=== PATIENT | male | born 1935 | race African-American/Black ===

== ENCOUNTER → 2020-03-10 | Emergency (ER) | payer OTHER ==
[~2020-03-10] VITALS: Ht 172.7 cm; Wt 96.2 kg
[2020-03-10 18:32] LABS: Basophils # (auto) 0 10 ^3/uL (0-0.2); Basophils % (auto) 1.2 % (0.0-2.0); Eosinophils # (auto) 0.3 10 ^3/uL (0-0.8); Eosinophils % (auto) 10.2 % (0.0-7.0); Lymphocytes # (auto) 0.9 10 ^3/uL (0.4-5.4); Lymphocytes % (auto) 25.8 % (10.0-50.0); Mean Corpuscular Hemoglobin 28.9 pg (28.0-32.0); Mean Corpuscular Hgb Conc. 32.4 g/dL (32.0-36.0); Mean Corpuscular Volume 89.2 fL (80.0-100.0); Monocytes # (auto) 0.5 10 ^3/uL (0-1.3); Monocytes % (auto) 15.4 % (0.0-12.0); Neutrophils # (auto) 1.6 10 ^3/uL (1.6-8.6); Neutrophils % (auto) 47.4 % (37.0-80.0); Nucleated Red Blood Cells % 0.1 %; Platelet Count (auto) 140 10^3/uL (140-450); Red Blood Cells 3.82 10^6/uL (4.5-5.90); Red Cell Distribution Width 14.2 % (11.8-14.3); White Blood Cell 3.4 10^3/uL (4.4-10.8)
[2020-03-10 18:51] LABS: Albumin 3.1 g/dL (3.4-5.0); Calcium 8.6 mg/dL (8.5-10.1)
[2020-03-10 18:53] LABS: BUN/Creatinine Ratio 11.2
[2020-03-10 18:55] LABS: Bilirubin, Total 0.3 mg/dL (0.2-1.0); Total Protein 6.7 g/dL (6.4-8.2)
[2020-03-10 22:11] VITALS: BP 126/89
== END | disposition home or self-care (01) ==
LOC: ER 17:44
DX: N28.9 Disorder of kidney and ureter, unspecified (principal)
CPT/HCPCS: 36415; 80053; 85025

== ENCOUNTER 2020-11-06 12:23 | Inpatient (IN) | payer OTHER ==
[~2020-11-06] VITALS: Ht 185.4 cm; Wt 92.9 kg
[2020-11-06 14:21] LABS: Basophils # (auto) 0 10 ^3/uL (0-0.2); Basophils % (auto) 0.1 % (0.0-2.0); Eosinophils # (auto) 0 10 ^3/uL (0-0.8); Eosinophils % (auto) 0.3 % (0.0-7.0); Hematocrit 33.6 % (41.0-53.0); Hemoglobin 11.3 g/dL (13.5-17.5); Lymphocytes # (auto) 0.3 10 ^3/uL (0.4-5.4); Lymphocytes % (auto) 4.1 % (10.0-50.0); Mean Corpuscular Hgb Conc. 33.6 g/dL (32.0-36.0); Mean Corpuscular Volume 89.1 fL (80.0-100.0); Monocytes # (auto) 0.6 10 ^3/uL (0-1.3); Monocytes % (auto) 7.5 % (0.0-12.0); Neutrophils # (auto) 7.5 10 ^3/uL (1.6-8.6); Nucleated Red Blood Cells % 0.1 %; Platelet Count (auto) 96 10^3/uL (140-450); Red Blood Cells 3.77 10^6/uL (4.5-5.90); Red Cell Distribution Width 14.2 % (11.8-14.3); White Blood Cell 8.5 10^3/uL (4.4-10.8)
[2020-11-06 14:38] LABS: INR 1.05 (0.9-1.15); Partial Thromboplastin Time 24.2 sec (23.0-31.2)
[2020-11-06 14:43] LABS: Albumin 3.3 g/dL (3.4-5.0); Calcium 8.6 mg/dL (8.5-10.1); Magnesium 2.5 mg/dL (1.6-2.6); Potassium 3.8 mmol/L (3.5-5.1)
[2020-11-06 14:48] LABS: BUN/Creatinine Ratio 11.4; Bilirubin, Total 0.7 mg/dL (0.2-1.0); Total Protein 6.7 g/dL (6.4-8.2)
[2020-11-06] MEDS ORDERED: MORPHINE SULF INJ 2 MG/ML SYRINGE 1ML IV ONE (15:45)
[2020-11-06] MEDS ORDERED: ONDANSETRON HCL 4 MG/2 ML VIAL IV ONE (15:45)
[2020-11-06] MEDS ORDERED: DOCUSATE SOD 100 MG CAP PO PRN (18:00)
[2020-11-06] MEDS ORDERED: MORPHINE SULF INJ 2 MG/ML SYRINGE 1ML IV PRN (18:00)
[2020-11-06] MEDS ORDERED: ACETAMINOPHEN 500 MG TAB PO PRN (18:00)
[2020-11-06] MEDS ORDERED: ONDANSETRON HCL 4 MG/2 ML VIAL IV PRN (18:00)
[2020-11-06] MEDS ORDERED: NITROGLYCERIN 0.4 MG SL TAB SL PRN (18:00)
[2020-11-06] MEDS: MORPHINE SULF INJ 2 MG/ML SYRINGE 1ML IV PRN (20:04)
[2020-11-07] MEDS: HYDROcodone-ACET 5/325MG TAB PO PRN (03:30)
[2020-11-07 05:30] VITALS: BP 126/69
[2020-11-07] MEDS: MORPHINE SULF INJ 2 MG/ML SYRINGE 1ML IV PRN (09:01)
[2020-11-07] MEDS: FAMOTIDINE 20 MG TAB PO SCH (09:50)
[2020-11-07] MEDS: amLODIPine BESYLATE 5 MG TAB PO SCH (09:50)
[2020-11-07] MEDS ORDERED: FAMOTIDINE 20 MG TAB PO SCH (10:00)
[2020-11-07] MEDS ORDERED: KETOROLAC TROMETH 30 MG/ML 1ML VIAL ONE (14:15)
[2020-11-07] MEDS ORDERED: VANCOMYCIN HCL 1000 MG VL ONE (14:16)
[2020-11-07] MEDS ORDERED: BUPIVACAINE 0.25% INJ 50ML VIAL ONE (14:17)
[2020-11-07] MEDS ORDERED: TRANEXAMIC ACID 0 ML ONE (14:17)
[2020-11-07] MEDS ORDERED: TETRACAINE 1% INJ 2 ML VIAL IJ ONE (14:28)
[2020-11-07] MEDS ORDERED: ceFAZolin 1GM/50ML 100 ML IV ONE (14:33)
[2020-11-07] MEDS ORDERED: MORPHINE SULF(PF) 0.5MG/ML 10ML VIAL ONE (14:42)
[2020-11-07 16:00] VITALS: BP 124/67
[2020-11-07] MEDS ORDERED: HALOPERIDOL LACTATE 5 MG/ML INJ VIAL IM PRN (17:00)
[2020-11-07 18:36] LABS: Basophils # (auto) 0 10 ^3/uL (0-0.2); Basophils % (auto) 0.4 % (0.0-2.0); Eosinophils # (auto) 0.1 10 ^3/uL (0-0.8); Eosinophils % (auto) 2.4 % (0.0-7.0); Hematocrit 33.1 % (41.0-53.0); Hemoglobin 10.9 g/dL (13.5-17.5); Lymphocytes # (auto) 0.4 10 ^3/uL (0.4-5.4); Lymphocytes % (auto) 8.3 % (10.0-50.0); Mean Corpuscular Hemoglobin 29.2 pg (28.0-32.0); Mean Corpuscular Hgb Conc. 32.8 g/dL (32.0-36.0); Monocytes # (auto) 0.8 10 ^3/uL (0-1.3); Monocytes % (auto) 17.1 % (0.0-12.0); Neutrophils # (auto) 3.5 10 ^3/uL (1.6-8.6); Neutrophils % (auto) 71.8 % (37.0-80.0); Platelet Count (auto) 92 10^3/uL (140-450); Red Blood Cells 3.71 10^6/uL (4.5-5.90); White Blood Cell 4.9 10^3/uL (4.4-10.8)
[2020-11-07 21:41] VITALS: BP 136/66
[2020-11-08] VITALS (7 sets, daily range): BP systolic 118–131; BP diastolic 54–73
[2020-11-08 00:38] LABS: Urine Bacteria MOD /hpf (None Seen); Urine Blood 3+ /uL (Negative); Urine Hyaline Cast FEW /lpf (0 - 2); Urine Specific Gravity 1.016 (1.001-1.035); Urine WBC 32 /hpf (0 - 3)
[2020-11-08] MEDS: MORPHINE SULF INJ 2 MG/ML SYRINGE 1ML IV PRN ×2 (00:40→06:20)
[2020-11-08 06:02] LABS: Basophils # (auto) 0 10 ^3/uL (0-0.2); Basophils % (auto) 0.4 % (0.0-2.0); Eosinophils # (auto) 0.2 10 ^3/uL (0-0.8); Eosinophils % (auto) 3.4 % (0.0-7.0); Hematocrit 33.2 % (41.0-53.0); Hemoglobin 11.1 g/dL (13.5-17.5); Lymphocytes # (auto) 0.6 10 ^3/uL (0.4-5.4); Lymphocytes % (auto) 10.8 % (10.0-50.0); Mean Corpuscular Hemoglobin 29.7 pg (28.0-32.0); Mean Corpuscular Hgb Conc. 33.3 g/dL (32.0-36.0); Monocytes # (auto) 0.8 10 ^3/uL (0-1.3); Monocytes % (auto) 15.2 % (0.0-12.0); Neutrophils # (auto) 3.7 10 ^3/uL (1.6-8.6); Neutrophils % (auto) 70.2 % (37.0-80.0); Nucleated Red Blood Cells % 0.2 %; Platelet Count (auto) 101 10^3/uL (140-450); Red Blood Cells 3.73 10^6/uL (4.5-5.90); Red Cell Distribution Width 14.3 % (11.8-14.3); White Blood Cell 5.3 10^3/uL (4.4-10.8)
[2020-11-08 06:25] LABS: Potassium 4.4 mmol/L (3.5-5.1)
[2020-11-08 06:35] LABS: Albumin 2.9 g/dL (3.4-5.0); BUN/Creatinine Ratio 15.1; Bilirubin, Total 0.8 mg/dL (0.2-1.0); Calcium 8.7 mg/dL (8.5-10.1); Total Protein 6.2 g/dL (6.4-8.2)
[2020-11-08] MEDS ORDERED: TRANEXAMIC ACID 20 ML ONE (08:23)
[2020-11-08] MEDS ORDERED: BUPIVACAINE HCL 50 ML ONE (08:23)
[2020-11-08] MEDS ORDERED: VANCOMYCIN HCL 1000 MG VL ONE (08:24)
[2020-11-08] MEDS ORDERED: KETOROLAC TROMETH 30 MG/ML 1ML VIAL ONE (09:16)
[2020-11-08] MEDS ORDERED: MORPHINE SULF(PF) 0.5MG/ML 10ML VIAL ONE (09:16)
[2020-11-08] MEDS: FAMOTIDINE 20 MG TAB PO SCH (10:00)
[2020-11-08] MEDS: amLODIPine BESYLATE 5 MG TAB PO SCH (10:00)
[2020-11-08] MEDS ORDERED: ceFAZolin 1GM/50ML 100 ML IV ONE (10:04)
[2020-11-08] MEDS ORDERED: TETRACAINE 1% INJ 2 ML VIAL IJ ONE (10:27)
[2020-11-08] MEDS ORDERED: MIDAZOLAM HCL 1MG/1ML-2 ML VIAL ONE ×2 (10:30→11:01)
[2020-11-08] MEDS ORDERED: fentaNYL CITRATE 100 MCG/2 ML VL ONE (10:30)
[2020-11-08] MEDS ORDERED: DexAMETHasone SOD PHOS 10MG/1ML VIAL INJ ONE (10:42)
[2020-11-08] MEDS ORDERED: cefTRIAXone 1GM/50ML D5W 50 ML IV ONE (11:00)
[2020-11-08] MEDS ORDERED: PROPOFOL 10 MG/ML 20 ML IV ONE ×2 (11:01→12:03)
[2020-11-08] MEDS ORDERED: ONDANSETRON HCL 4 MG/2 ML VIAL IV PRN (12:45)
[2020-11-08] MEDS ORDERED: ePHEDrine SULFATE 50 MG/ML AMP IV PRN (12:45)
[2020-11-08] MEDS ORDERED: MIDAZOLAM HCL 1MG/1ML-2 ML VIAL IV PRN (12:45)
[2020-11-08] MEDS ORDERED: MORPHINE SULFATE 4 MG/ML SYR/VIAL IV PRN (12:45)
[2020-11-08] MEDS ORDERED: LABETALOL HCL 5 MG/ML 4ML SYRINGE IV PRN (12:45)
[2020-11-08] MEDS: LACTATED RINGER'S 1,000 ML IV SCH ×2 (14:03→21:42)
[2020-11-08] MEDS: ceFAZolin 1GM/50ML 50 ML IV SCH ×2 (16:00→21:41)
[2020-11-09 06:00] VITALS: BP 111/68
[2020-11-09 07:07] LABS: Basophils # (auto) 0 10 ^3/uL (0-0.2); Basophils % (auto) 0.2 % (0.0-2.0); Eosinophils # (auto) 0.2 10 ^3/uL (0-0.8); Eosinophils % (auto) 3.6 % (0.0-7.0); Hematocrit 28.6 % (41.0-53.0); Hemoglobin 9.8 g/dL (13.5-17.5); Lymphocytes # (auto) 0.3 10 ^3/uL (0.4-5.4); Lymphocytes % (auto) 5.7 % (10.0-50.0); Mean Corpuscular Hemoglobin 30.2 pg (28.0-32.0); Mean Corpuscular Hgb Conc. 34.2 g/dL (32.0-36.0); Mean Corpuscular Volume 88.4 fL (80.0-100.0); Monocytes # (auto) 0.8 10 ^3/uL (0-1.3); Monocytes % (auto) 14.3 % (0.0-12.0); Neutrophils # (auto) 4.5 10 ^3/uL (1.6-8.6); Neutrophils % (auto) 76.2 % (37.0-80.0); Platelet Count (auto) 88 10^3/uL (140-450); Red Blood Cells 3.24 10^6/uL (4.5-5.90); Red Cell Distribution Width 14.1 % (11.8-14.3); White Blood Cell 5.9 10^3/uL (4.4-10.8)
[2020-11-09 07:11] LABS: Potassium 4.5 mmol/L (3.5-5.1)
[2020-11-09 07:21] LABS: Albumin 2.6 g/dL (3.4-5.0); BUN/Creatinine Ratio 17.8; Bilirubin, Total 0.8 mg/dL (0.2-1.0); Total Protein 5.7 g/dL (6.4-8.2)
[2020-11-09] MEDS: ceFAZolin 1GM/50ML 50 ML IV SCH (07:59)
[2020-11-09 08:00] VITALS: BP 121/63
[2020-11-09] MEDS: LACTATED RINGER'S 1,000 ML IV SCH (08:15)
[2020-11-09] MEDS: cefTRIAXone 1GM/50ML D5W 50 ML IV SCH (09:00)
[2020-11-09] MEDS: amLODIPine BESYLATE 5 MG TAB PO SCH (09:57)
[2020-11-09] MEDS: HYDROcodone-ACET 5/325MG TAB PO PRN ×2 (09:57→20:33)
[2020-11-09] MEDS: FAMOTIDINE 20 MG TAB PO SCH (09:57)
[2020-11-09] MEDS ORDERED: ENOXAPARIN SOD 40 MG/0.4 ML SYRINGE SC SCH (10:00)
[2020-11-09 15:52] VITALS: BP 119/56
[2020-11-09 21:52] VITALS: BP 122/59
[2020-11-10 05:04] VITALS: BP 122/62
[2020-11-10 07:08] LABS: Basophils # (auto) 0 10 ^3/uL (0-0.2); Basophils % (auto) 0.3 % (0.0-2.0); Eosinophils # (auto) 0.3 10 ^3/uL (0-0.8); Eosinophils % (auto) 4.6 % (0.0-7.0); Hematocrit 25.6 % (41.0-53.0); Hemoglobin 8.8 g/dL (13.5-17.5); Lymphocytes # (auto) 0.5 10 ^3/uL (0.4-5.4); Mean Corpuscular Hemoglobin 30.1 pg (28.0-32.0); Mean Corpuscular Hgb Conc. 34.3 g/dL (32.0-36.0); Mean Corpuscular Volume 87.5 fL (80.0-100.0); Monocytes # (auto) 1.2 10 ^3/uL (0-1.3); Monocytes % (auto) 16.3 % (0.0-12.0); Neutrophils # (auto) 5.1 10 ^3/uL (1.6-8.6); Neutrophils % (auto) 71.8 % (37.0-80.0); Nucleated Red Blood Cells % 0.1 %; Platelet Count (auto) 98 10^3/uL (140-450); Red Blood Cells 2.93 10^6/uL (4.5-5.90); White Blood Cell 7.1 10^3/uL (4.4-10.8)
[2020-11-10 07:28] LABS: BUN/Creatinine Ratio 19.1; Calcium 8.5 mg/dL (8.5-10.1); Potassium 4.4 mmol/L (3.5-5.1)
[2020-11-10 08:00] VITALS: BP 134/61
[2020-11-10 09:35] VITALS: BP 134/61
[2020-11-10] MEDS: cefTRIAXone 1GM/50ML D5W 50 ML IV SCH (10:04)
[2020-11-10] MEDS: FAMOTIDINE 20 MG TAB PO SCH (10:04)
[2020-11-10] MEDS: amLODIPine BESYLATE 5 MG TAB PO SCH (10:04)
[2020-11-10] MEDS ORDERED: FERROUS SULFATE 325 MG TAB PO ONE (10:45)
[2020-11-10 18:14] VITALS: BP 122/66
[2020-11-10] MEDS: FERROUS SULFATE 325 MG TAB PO SCH (18:38)
[2020-11-10 21:00] VITALS: BP 132/45
[2020-11-11 05:40] VITALS: BP 132/58
[2020-11-11 05:58] LABS: Basophils # (auto) 0 10 ^3/uL (0-0.2); Basophils % (auto) 0.6 % (0.0-2.0); Eosinophils # (auto) 0.4 10 ^3/uL (0-0.8); Eosinophils % (auto) 6.5 % (0.0-7.0); Hematocrit 26.1 % (41.0-53.0); Hemoglobin 8.9 g/dL (13.5-17.5); Lymphocytes # (auto) 0.8 10 ^3/uL (0.4-5.4); Lymphocytes % (auto) 13.2 % (10.0-50.0); Mean Corpuscular Hemoglobin 29.8 pg (28.0-32.0); Mean Corpuscular Hgb Conc. 34.1 g/dL (32.0-36.0); Mean Corpuscular Volume 87.4 fL (80.0-100.0); Monocytes # (auto) 0.9 10 ^3/uL (0-1.3); Monocytes % (auto) 15.5 % (0.0-12.0); Neutrophils # (auto) 3.9 10 ^3/uL (1.6-8.6); Neutrophils % (auto) 64.2 % (37.0-80.0); Platelet Count (auto) 112 10^3/uL (140-450); Red Blood Cells 2.99 10^6/uL (4.5-5.90); Red Cell Distribution Width 14.2 % (11.8-14.3)
[2020-11-11 08:00] VITALS: BP 133/61
[2020-11-11] MEDS: FERROUS SULFATE 325 MG TAB PO SCH ×2 (08:00→17:53)
[2020-11-11] MEDS: cefTRIAXone 1GM/50ML D5W 50 ML IV SCH (09:00)
[2020-11-11] MEDS: FAMOTIDINE 20 MG TAB PO SCH (09:56)
[2020-11-11] MEDS: amLODIPine BESYLATE 5 MG TAB PO SCH (09:56)
[2020-11-11] MEDS: HYDROcodone-ACET 5/325MG TAB PO PRN ×3 (09:57→17:53)
[2020-11-11 13:34] VITALS: BP 133/61
== END 2020-11-11 19:00 | disposition home or self-care (01) | DRG 522 ==
LOC: EDBD 12:23 → ER 12:23 → TELE 12:24 → TELE-CENTR 11-07 16:10
PROVIDERS: ADMIT Nurse Practitioner Acute Care; ATTEND Internal Medicine
PROC: 0SRR01Z Replacement of Right Hip Joint, Femoral Surface with Metal Synthetic Substitute, Open Approach (ICD-10-PCS; principal; 2020-11-08 10:34)
DX: S72.011A Unspecified intracapsular fracture of right femur, initial encounter for closed fracture (principal); N18.4 Chronic kidney disease, stage 4 (severe); I50.22 Chronic systolic (congestive) heart failure; N39.0 Urinary tract infection, site not specified; I42.9 Cardiomyopathy, unspecified; I13.0 Hypertensive heart and chronic kidney disease with heart failure and stage 1 through stage 4 chronic kidney disease, or unspecified chronic kidney disease; W01.0XXA Fall on same level from slipping, tripping and stumbling without subsequent striking against object, initial encounter; Y93.01 Activity, walking, marching and hiking; D69.6 Thrombocytopenia, unspecified; E03.9 Hypothyroidism, unspecified; M81.0 Age-related osteoporosis without current pathological fracture; E78.5 Hyperlipidemia, unspecified; D63.8 Anemia in other chronic diseases classified elsewhere; Z20.822 Contact with and (suspected) exposure to COVID-19; E11.22 Type 2 diabetes mellitus with diabetic chronic kidney disease; R31.9 Hematuria, unspecified; I25.10 Atherosclerotic heart disease of native coronary artery without angina pectoris; Z79.899 Other long term (current) drug therapy; Y92.096 Garden or yard of other non-institutional residence as the place of occurrence of the external cause; Y99.8 Other external cause status
CPT/HCPCS: 36415; 70450; 71045; 72170; 72192; 73501; 80048; 80053; 81001; 82962; 83735; 84443; 84484; 85025; 85610; 85730; 86850; 86900; 86901; 87426; 93005; 93306; 96374; 96375; 97110; 97116; 97530; A4565; G0378; J0690; J0696; J1100; J1885; J2250; J2405; J2704; J3490

== ENCOUNTER 2020-11-28 09:56 | Inpatient (IN) | payer OTHER ==
[~2020-11-28] VITALS: Ht 188 cm; Wt 89.2 kg
[2020-11-28 10:56] LABS: Basophils # (auto) 0 10 ^3/uL (0-0.2); Basophils % (auto) 0.3 % (0.0-2.0); Eosinophils # (auto) 0 10 ^3/uL (0-0.8); Eosinophils % (auto) 0.3 % (0.0-7.0); Hemoglobin 9.1 g/dL (13.5-17.5); Lymphocytes # (auto) 0.2 10 ^3/uL (0.4-5.4); Lymphocytes % (auto) 4.8 % (10.0-50.0); Mean Corpuscular Hemoglobin 29.3 pg (28.0-32.0); Mean Corpuscular Hgb Conc. 33.8 g/dL (32.0-36.0); Mean Corpuscular Volume 86.9 fL (80.0-100.0); Monocytes # (auto) 0.4 10 ^3/uL (0-1.3); Monocytes % (auto) 9.7 % (0.0-12.0); Neutrophils # (auto) 3.9 10 ^3/uL (1.6-8.6); Neutrophils % (auto) 84.9 % (37.0-80.0); Nucleated Red Blood Cells % 0.2 %; Platelet Count (auto) 174 10^3/uL (140-450); Red Cell Distribution Width 14.3 % (11.8-14.3); White Blood Cell 4.6 10^3/uL (4.4-10.8)
[2020-11-28 11:26] LABS: INR 1.07 (0.9-1.15); Partial Thromboplastin Time 31.1 sec (23.0-31.2)
[2020-11-28 11:30] LABS: Albumin 2.4 g/dL (3.4-5.0); Potassium 3.9 mmol/L (3.5-5.1)
[2020-11-28 11:45] LABS: BUN/Creatinine Ratio 21.9; Bilirubin, Total 1.1 mg/dL (0.2-1.0); Total Protein 6.2 g/dL (6.4-8.2)
[2020-11-28] MEDS ORDERED: cefTRIAXone 1GM/50ML D5W 50 ML IV ONE (12:30)
[2020-11-28] MEDS ORDERED: ENOXAPARIN SOD 100 MG/1 ML SYRINGE SC ONE (12:30)
[2020-11-28] MEDS ORDERED: AZITHROMYCIN 500MG/ 250ML 250 ML IV ONE (12:30)
[2020-11-28] MEDS ORDERED: FUROSEMIDE 20 MG/2 ML VIAL IV ONE (13:15)
[2020-11-28] MEDS ORDERED: NITROGLYCERIN 0.4 MG SL TAB SL PRN (15:15)
[2020-11-28] MEDS ORDERED: HYDROcodone-ACET 5/325MG TAB PO PRN (15:15)
[2020-11-28] MEDS ORDERED: REMDESIVIR PER PHARMACY 0 ML IV SCH (15:15)
[2020-11-28] MEDS ORDERED: ONDANSETRON HCL 4 MG/2 ML VIAL IV PRN (15:15)
[2020-11-28] MEDS ORDERED: hydrALAZINE HCL 20 MG/ML VL IV PRN (15:15)
[2020-11-28] MEDS ORDERED: ACETAMINOPHEN 500 MG TAB PO PRN ×2 (15:15)
[2020-11-28] MEDS ORDERED: MORPHINE SULF INJ 2 MG/ML SYRINGE 1ML IV PRN (15:15)
[2020-11-28] MEDS: MORPHINE SULF INJ 2 MG/ML SYRINGE 1ML IV PRN (16:09)
[2020-11-28] MEDS ORDERED: TERA2CAP45 PO (16:50)
[2020-11-28] MEDS ORDERED: LEVO75TA6 PO (16:50)
[2020-11-28] MEDS ORDERED: POTA-264 PO (16:50)
[2020-11-28] MEDS ORDERED: FURO20TA3 PO (16:50)
[2020-11-28] MEDS ORDERED: SIMV10TA84 PO (16:50)
[2020-11-28] MEDS ORDERED: LOS25T PO (16:50)
[2020-11-28] MEDS ORDERED: REMDESIVIR 200 MG in NS 210ml LOADING DOSE ADULT IV ONE (17:00)
[2020-11-28 19:11] LABS: Urine Bacteria FEW /hpf (None Seen); Urine Blood TRACE /uL (Negative); Urine Hyaline Cast FEW /lpf (0 - 2); Urine WBC <1 /hpf (0 - 3)
[2020-11-28] MEDS: BUDESONIDE (INHALATION) 180 MCG IH IN SCH (20:10)
[2020-11-28] MEDS: ALBUTEROL SULF HFA 90MCG INH 200DOSE IN PRN (20:11)
[2020-11-28 22:00] VITALS: BP 142/66
[2020-11-28] MEDS: METOPROLOL TARTRATE 25 MG TAB PO SCH (22:00)
[2020-11-28] MEDS ORDERED: ATORVASTATIN 20 MG TAB PO SCH (22:00)
[2020-11-28 23:12] LABS: CRP High Sensitivity 15.9 mg/dL (< 0.3)
[2020-11-29] VITALS (9 sets, daily range): BP systolic 108–142; BP diastolic 48–66
[2020-11-29] MEDS ORDERED: IVERMECTIN 3 MG TAB PO ONE (07:00)
[2020-11-29] MEDS: BUDESONIDE (INHALATION) 180 MCG IH IN SCH ×2 (07:05→20:23)
[2020-11-29 07:38] LABS: Calcium 7.7 mg/dL (8.5-10.1); Potassium 3.8 mmol/L (3.5-5.1)
[2020-11-29 07:42] LABS: BUN/Creatinine Ratio 23.8; Bilirubin, Total 0.9 mg/dL (0.2-1.0); Total Protein 5.9 g/dL (6.4-8.2)
[2020-11-29] MEDS: MORPHINE SULF INJ 2 MG/ML SYRINGE 1ML IV PRN (08:17)
[2020-11-29] MEDS ORDERED: EPINEPHrine HCL 1 MG/1 ML AMP ONE (09:43)
[2020-11-29] MEDS ORDERED: VANCOMYCIN HCL 1000 MG VL ONE (09:43)
[2020-11-29] MEDS: METOPROLOL TARTRATE 25 MG TAB PO SCH ×2 (10:00→23:55)
[2020-11-29] MEDS: ZINC SULFATE 220mg CAP or TAB PO SCH (13:12)
[2020-11-29] MEDS: AZITHROMYCIN 500MG/ 250ML 250 ML IV SCH (13:12)
[2020-11-29] MEDS: DexAMETHasone SOD PHOS 10MG/1ML VIAL INJ IV SCH (13:12)
[2020-11-29] MEDS: FUROSEMIDE 20 MG/2 ML VIAL IV SCH (13:12)
[2020-11-29] MEDS: CHOLECALCIFEROL (VITD3) 2,000 UNIT CAP/TAB PO SCH (13:13)
[2020-11-29] MEDS: FLORASTOR (S. BOULARDII) 250 MG CAP PO SCH (13:13)
[2020-11-29] MEDS: LISINOPRIL 10 MG TAB PO SCH (13:13)
[2020-11-29] MEDS: ASCORBIC ACID 1,000 MG TAB PO SCH (13:13)
[2020-11-29] MEDS: PANTOPRAZOLE 40 MG TAB PO SCH (13:23)
[2020-11-29] MEDS: ENOXAPARIN SOD 40 MG/0.4 ML SYRINGE SC SCH ×2 (13:23→22:00)
[2020-11-29] MEDS: LEVOTHYROXINE SODIUM 25 MCG TAB PO SCH (13:23)
[2020-11-29] MEDS: cefTRIAXone 1GM/50ML D5W 50 ML IV SCH (13:23)
[2020-11-29] MEDS: ASPirin-EC 81 mg tab PO SCH (13:23)
[2020-11-29] MEDS: REMDESIVIR 100mg 100 MG in SODIUM CHL 0.9% 230 ML IV SCH (17:35)
[2020-11-29] MEDS: ALBUTEROL SULF HFA 90MCG INH 200DOSE IN PRN (20:23)
[2020-11-29] MEDS: ATORVASTATIN 20 MG TAB PO SCH (22:00)
[2020-11-30 05:00] VITALS: BP 126/57
[2020-11-30] MEDS: LEVOTHYROXINE SODIUM 25 MCG TAB PO SCH (07:05)
[2020-11-30 07:08] LABS: Hematocrit 26.3 % (41.0-53.0); Hemoglobin 8.7 g/dL (13.5-17.5); Mean Corpuscular Hemoglobin 29.3 pg (28.0-32.0); Mean Corpuscular Hgb Conc. 33.2 g/dL (32.0-36.0); Mean Corpuscular Volume 88.3 fL (80.0-100.0); Platelet Count (auto) 174 10^3/uL (140-450); Red Blood Cells 2.98 10^6/uL (4.5-5.90); Red Cell Distribution Width 14.5 % (11.8-14.3); White Blood Cell 4.4 10^3/uL (4.4-10.8)
[2020-11-30 07:11] LABS: Band Neutrophils % (manual) 0; Basophils % (manual) 0 (0.0-2.0); Blast Cells 0; Eosinophils % (manual) 0 (0-7); Metamyelocytes % 0; Myelocytes % 0; Promyelocytes % 0; Reactive Lymphocytes 0
[2020-11-30 07:25] LABS: Anion Gap 10 (5-15); Blood Urea Nitrogen 44 mg/dL (7-18); Carbon Dioxide 23 mmol/L (21-32); Chloride 120 mmol/L (98-107); Glucose 104 mg/dL (74-106); Potassium 4.3 mmol/L (3.5-5.1); Sodium 153 mmol/L (136-145)
[2020-11-30 07:26] LABS: Alanine Aminotransferase 12 U/L (16-61); Alkaline Phosphatase 61 U/L (45-117); Aspartate Aminotransferase 46 U/L (15-37); BUN/Creatinine Ratio 24.6; Bilirubin, Total 0.9 mg/dL (0.2-1.0); Cholesterol 83 mg/dL (< 200); GFR African American 47 mL/min; GFR Non-African American 38 mL/min; Total Protein 5.9 g/dL (6.4-8.2); Triglycerides 40 mg/dL (< 150)
[2020-11-30 07:27] LABS: CRP High Sensitivity 13.7 mg/dL (< 0.3); HDL Cholesterol 44 mg/dL (40-59); LDL Cholesterol 39 mg/dL (< 100); Magnesium 2.7 mg/dL (1.6-2.6)
[2020-11-30] MEDS: BUDESONIDE (INHALATION) 180 MCG IH IN SCH ×2 (07:30→19:05)
[2020-11-30 07:55] LABS: Lymphocytes % (manual) 11 (10.0-50.0); Monocytes % (manual) 10 (0-12)
[2020-11-30 08:53] VITALS: BP 118/55
[2020-11-30] MEDS: cefTRIAXone 1GM/50ML D5W 50 ML IV SCH (09:00)
[2020-11-30] MEDS: FUROSEMIDE 20 MG/2 ML VIAL IV SCH (10:00)
[2020-11-30] MEDS: METOPROLOL TARTRATE 25 MG TAB PO SCH ×2 (10:00→22:29)
[2020-11-30] MEDS: AZITHROMYCIN 500MG/ 250ML 250 ML IV SCH (11:03)
[2020-11-30] MEDS: DexAMETHasone SOD PHOS 10MG/1ML VIAL INJ IV SCH (11:03)
[2020-11-30] MEDS: ZINC SULFATE 220mg CAP or TAB PO SCH (11:03)
[2020-11-30] MEDS: ASPirin-EC 81 mg tab PO SCH (11:04)
[2020-11-30] MEDS: ENOXAPARIN SOD 40 MG/0.4 ML SYRINGE SC SCH ×2 (11:04→22:00)
[2020-11-30] MEDS: ASCORBIC ACID 1,000 MG TAB PO SCH (11:04)
[2020-11-30] MEDS: FLORASTOR (S. BOULARDII) 250 MG CAP PO SCH (11:04)
[2020-11-30] MEDS: CHOLECALCIFEROL (VITD3) 2,000 UNIT CAP/TAB PO SCH (11:04)
[2020-11-30] MEDS: PANTOPRAZOLE 40 MG TAB PO SCH (11:04)
[2020-11-30] MEDS: LISINOPRIL 10 MG TAB PO SCH (11:05)
[2020-11-30 13:27] VITALS: BP 105/73
[2020-11-30] MEDS: REMDESIVIR 100mg 100 MG in SODIUM CHL 0.9% 230 ML IV SCH (14:45)
[2020-11-30 17:00] VITALS: BP 119/55
[2020-11-30] MEDS: ALBUTEROL SULF HFA 90MCG INH 200DOSE IN PRN (19:56)
[2020-11-30 22:00] VITALS: BP 119/58
[2020-11-30] MEDS: ATORVASTATIN 20 MG TAB PO SCH (22:19)
[2020-12-01] VITALS (19 sets, daily range): BP systolic 90–119; BP diastolic 38–65
[2020-12-01 06:32] LABS: Hematocrit 24.9 % (41.0-53.0); Hemoglobin 8.3 g/dL (13.5-17.5)
[2020-12-01] MEDS: LEVOTHYROXINE SODIUM 25 MCG TAB PO SCH (06:34)
[2020-12-01 06:39] LABS: Albumin 2.1 g/dL (3.4-5.0); Calcium 8.2 mg/dL (8.5-10.1); Potassium 4.4 mmol/L (3.5-5.1)
[2020-12-01 06:42] LABS: BUN/Creatinine Ratio 27.8; Bilirubin, Total 0.6 mg/dL (0.2-1.0); Total Protein 5.8 g/dL (6.4-8.2)
[2020-12-01] MEDS ORDERED: TRANEXAMIC ACID 0 ML ONE (07:01)
[2020-12-01] MEDS ORDERED: BUPIVACAINE W/ EPINEPH 0.25% INJ 50ML MDV ONE (07:01)
[2020-12-01] MEDS ORDERED: KETOROLAC TROMETH 30 MG/ML 1ML VIAL ONE (07:02)
[2020-12-01] MEDS ORDERED: MORPHINE SULF(PF) 0.5MG/ML 10ML VIAL ONE ×2 (07:02→07:40)
[2020-12-01] MEDS ORDERED: VANCOMYCIN HCL 1000 MG VL ONE ×2 (07:04→10:44)
[2020-12-01] MEDS: BUDESONIDE (INHALATION) 180 MCG IH IN SCH ×2 (07:19→19:29)
[2020-12-01] MEDS ORDERED: TETRACAINE 1% INJ 2 ML VIAL IJ ONE (07:21)
[2020-12-01] MEDS ORDERED: BUPIVACAINE 0.5% P/F INJ 10 ML VIAL ONE (07:29)
[2020-12-01] MEDS ORDERED: fentaNYL CITRATE 100 MCG/2 ML VL ONE (07:40)
[2020-12-01] MEDS ORDERED: ePHEDrine SULFATE 50 MG/ML AMP IV ONE (07:59)
[2020-12-01] MEDS ORDERED: PHENYLEPHRINE HCL 10 MG/ML VL IV ONE (07:59)
[2020-12-01] MEDS ORDERED: GLYCOPYRROLATE 0.2 MG/ML 1ML VIAL IV ONE (07:59)
[2020-12-01] MEDS ORDERED: ONDANSETRON HCL 4 MG/2 ML VIAL IV ONE (07:59)
[2020-12-01] MEDS ORDERED: MIDAZOLAM HCL 1MG/1ML-2 ML VIAL ONE (08:02)
[2020-12-01] MEDS: cefTRIAXone 1GM/50ML D5W 50 ML IV SCH (09:00)
[2020-12-01] MEDS ORDERED: KETAMINE HCL 10 ML ONE (09:05)
[2020-12-01] MEDS: ASCORBIC ACID 1,000 MG TAB PO SCH (10:00)
[2020-12-01] MEDS: ASPirin-EC 81 mg tab PO SCH (10:00)
[2020-12-01] MEDS: METOPROLOL TARTRATE 25 MG TAB PO SCH ×2 (10:00→22:50)
[2020-12-01] MEDS: ZINC SULFATE 220mg CAP or TAB PO SCH (10:00)
[2020-12-01] MEDS: PANTOPRAZOLE 40 MG TAB PO SCH (10:00)
[2020-12-01] MEDS: FUROSEMIDE 20 MG/2 ML VIAL IV SCH (10:00)
[2020-12-01] MEDS: CHOLECALCIFEROL (VITD3) 2,000 UNIT CAP/TAB PO SCH (10:00)
[2020-12-01] MEDS: ENOXAPARIN SOD 40 MG/0.4 ML SYRINGE SC SCH (10:00)
[2020-12-01] MEDS: FLORASTOR (S. BOULARDII) 250 MG CAP PO SCH (10:00)
[2020-12-01] MEDS: LISINOPRIL 10 MG TAB PO SCH (10:00)
[2020-12-01] MEDS: AZITHROMYCIN 500MG/ 250ML 250 ML IV SCH (10:00)
[2020-12-01] MEDS: DexAMETHasone SOD PHOS 10MG/1ML VIAL INJ IV SCH (10:00)
[2020-12-01] MEDS ORDERED: NALBUPHINE HCL 10 MG/1ml INJECTION SUBCUT ONE (11:30)
[2020-12-01] MEDS ORDERED: ONDANSETRON HCL 4 MG/2 ML VIAL IV PRN ×2 (11:30)
[2020-12-01] MEDS ORDERED: DexAMETHasone SOD PHOS 10MG/1ML VIAL INJ IV PRN (11:30)
[2020-12-01] MEDS ORDERED: NALOXONE HCL 0.4 MG/ML VIAL IV PRN (11:30)
[2020-12-01] MEDS ORDERED: ACETAMINOPHEN 325 MG TAB PO PRN (11:45)
[2020-12-01] MEDS ORDERED: ceFAZolin 1GM/50ML 50 ML IV SCH (11:45)
[2020-12-01] MEDS ORDERED: HYDROcodone-ACET 10/325MG TAB PO PRN (11:45)
[2020-12-01] MEDS ORDERED: LACTATED RINGER'S 1,000 ML IV SCH ×2 (11:45→13:30)
[2020-12-01] MEDS: SODIUM CHLOR 0.9% PF (SALINE LOCK) 10ML VIAL/SYR IV SCH ×2 (14:00→22:50)
[2020-12-01] MEDS: REMDESIVIR 100mg 100 MG in SODIUM CHL 0.9% 230 ML IV SCH (15:30)
[2020-12-01] MEDS: ceFAZolin 1GM/50ML 50 ML IV SCH (18:43)
[2020-12-01] MEDS: ALBUTEROL SULF HFA 90MCG INH 200DOSE IN PRN (19:29)
[2020-12-01] MEDS: ATORVASTATIN 20 MG TAB PO SCH (22:50)
[2020-12-02] VITALS (11 sets, daily range): BP systolic 96–122; BP diastolic 45–60
[2020-12-02] MEDS: ceFAZolin 1GM/50ML 50 ML IV SCH (03:43)
[2020-12-02] MEDS: SODIUM CHLOR 0.9% PF (SALINE LOCK) 10ML VIAL/SYR IV SCH ×3 (06:00→21:23)
[2020-12-02] MEDS: LEVOTHYROXINE SODIUM 25 MCG TAB PO SCH (06:49)
[2020-12-02 06:59] LABS: Basophils # (auto) 0 10 ^3/uL (0-0.2); Basophils % (auto) 0.1 % (0.0-2.0); Eosinophils # (auto) 0.1 10 ^3/uL (0-0.8); Eosinophils % (auto) 1.1 % (0.0-7.0); Hematocrit 22.5 % (41.0-53.0); Hemoglobin 7.7 g/dL (13.5-17.5); Lymphocytes # (auto) 0.1 10 ^3/uL (0.4-5.4); Lymphocytes % (auto) 2.3 % (10.0-50.0); Mean Corpuscular Hemoglobin 29.3 pg (28.0-32.0); Mean Corpuscular Hgb Conc. 34.3 g/dL (32.0-36.0); Mean Corpuscular Volume 85.4 fL (80.0-100.0); Monocytes # (auto) 0.3 10 ^3/uL (0-1.3); Monocytes % (auto) 5.5 % (0.0-12.0); Neutrophils # (auto) 5.4 10 ^3/uL (1.6-8.6); Nucleated Red Blood Cells % 0.1 %; Platelet Count (auto) 164 10^3/uL (140-450); Red Blood Cells 2.63 10^6/uL (4.5-5.90); Red Cell Distribution Width 14.5 % (11.8-14.3); White Blood Cell 5.9 10^3/uL (4.4-10.8)
[2020-12-02 07:31] LABS: Albumin 1.9 g/dL (3.4-5.0); BUN/Creatinine Ratio 28.4; Bilirubin, Total 0.5 mg/dL (0.2-1.0); Calcium 7.8 mg/dL (8.5-10.1); Magnesium 2.6 mg/dL (1.6-2.6); Total Protein 5.2 g/dL (6.4-8.2)
[2020-12-02] MEDS: BUDESONIDE (INHALATION) 180 MCG IH IN SCH ×2 (07:36→22:36)
[2020-12-02] MEDS: ALBUTEROL SULF HFA 90MCG INH 200DOSE IN PRN (07:37)
[2020-12-02] MEDS: cefTRIAXone 1GM/50ML D5W 50 ML IV SCH (09:00)
[2020-12-02] MEDS: LISINOPRIL 10 MG TAB PO SCH (10:00)
[2020-12-02] MEDS: FLORASTOR (S. BOULARDII) 250 MG CAP PO SCH (10:00)
[2020-12-02] MEDS: PANTOPRAZOLE 40 MG TAB PO SCH (10:00)
[2020-12-02] MEDS: DexAMETHasone SOD PHOS 10MG/1ML VIAL INJ IV SCH (10:00)
[2020-12-02] MEDS: ZINC SULFATE 220mg CAP or TAB PO SCH (10:00)
[2020-12-02] MEDS: ASPirin-EC 81 mg tab PO SCH (10:00)
[2020-12-02] MEDS: METOPROLOL TARTRATE 25 MG TAB PO SCH ×2 (10:00→21:22)
[2020-12-02] MEDS: ENOXAPARIN SOD 30 MG/0.3 ML SYRINGE SC SCH ×2 (10:00→21:22)
[2020-12-02] MEDS: CHOLECALCIFEROL (VITD3) 2,000 UNIT CAP/TAB PO SCH (10:00)
[2020-12-02] MEDS: AZITHROMYCIN 500MG/ 250ML 250 ML IV SCH (10:00)
[2020-12-02] MEDS ORDERED: ENOXAPARIN SOD 40 MG/0.4 ML SYRINGE SC SCH (10:00)
[2020-12-02] MEDS: ASCORBIC ACID 1,000 MG TAB PO SCH (10:00)
[2020-12-02] MEDS: FUROSEMIDE 20 MG/2 ML VIAL IV SCH (10:00)
[2020-12-02] MEDS: REMDESIVIR 100mg 100 MG in SODIUM CHL 0.9% 230 ML IV SCH (15:00)
[2020-12-02] MEDS: ATORVASTATIN 20 MG TAB PO SCH (21:21)
[2020-12-03 05:00] VITALS: BP 133/63
[2020-12-03] MEDS: LEVOTHYROXINE SODIUM 25 MCG TAB PO SCH (06:20)
[2020-12-03] MEDS: SODIUM CHLOR 0.9% PF (SALINE LOCK) 10ML VIAL/SYR IV SCH ×3 (06:21→21:34)
[2020-12-03] MEDS: BUDESONIDE (INHALATION) 180 MCG IH IN SCH ×3 (07:00→19:52)
[2020-12-03] MEDS: ALBUTEROL SULF HFA 90MCG INH 200DOSE IN PRN ×3 (07:02→19:52)
[2020-12-03 07:11] LABS: Basophils # (auto) 0 10 ^3/uL (0-0.2); Basophils % (auto) 0.1 % (0.0-2.0); Eosinophils # (auto) 0 10 ^3/uL (0-0.8); Hemoglobin 7.8 g/dL (13.5-17.5); Monocytes # (auto) 0.5 10 ^3/uL (0-1.3); Nucleated Red Blood Cells % 0.2 %
[2020-12-03 07:14] LABS: Eosinophils % (auto) 0.1 % (0.0-7.0); Hematocrit 22.6 % (41.0-53.0); Lymphocytes # (auto) 0.3 10 ^3/uL (0.4-5.4); Lymphocytes % (auto) 3.6 % (10.0-50.0); Mean Corpuscular Hemoglobin 29.5 pg (28.0-32.0); Mean Corpuscular Hgb Conc. 34.7 g/dL (32.0-36.0); Mean Corpuscular Volume 85.2 fL (80.0-100.0); Monocytes % (auto) 6.2 % (0.0-12.0); Neutrophils # (auto) 7.1 10 ^3/uL (1.6-8.6); Platelet Count (auto) 176 10^3/uL (140-450); Red Blood Cells 2.65 10^6/uL (4.5-5.90); Red Cell Distribution Width 14.5 % (11.8-14.3); White Blood Cell 7.9 10^3/uL (4.4-10.8)
[2020-12-03 07:17] LABS: Potassium 3.9 mmol/L (3.5-5.1)
[2020-12-03 07:22] LABS: Albumin 1.9 g/dL (3.4-5.0); BUN/Creatinine Ratio 28.7; Bilirubin, Total 0.6 mg/dL (0.2-1.0); Calcium 8.4 mg/dL (8.5-10.1); Total Protein 5.4 g/dL (6.4-8.2)
[2020-12-03 09:00] VITALS: BP 112/51
[2020-12-03] MEDS: cefTRIAXone 1GM/50ML D5W 50 ML IV SCH (09:11)
[2020-12-03] MEDS: PANTOPRAZOLE 40 MG TAB PO SCH (10:00)
[2020-12-03] MEDS: ENOXAPARIN SOD 30 MG/0.3 ML SYRINGE SC SCH ×2 (10:00→21:33)
[2020-12-03] MEDS: ASCORBIC ACID 1,000 MG TAB PO SCH (10:00)
[2020-12-03] MEDS: CHOLECALCIFEROL (VITD3) 2,000 UNIT CAP/TAB PO SCH (10:00)
[2020-12-03] MEDS: ASPirin-EC 81 mg tab PO SCH (10:00)
[2020-12-03] MEDS: FUROSEMIDE 20 MG/2 ML VIAL IV SCH (10:00)
[2020-12-03] MEDS: AZITHROMYCIN 500MG/ 250ML 250 ML IV SCH (10:00)
[2020-12-03] MEDS: ZINC SULFATE 220mg CAP or TAB PO SCH (10:00)
[2020-12-03] MEDS: LISINOPRIL 10 MG TAB PO SCH (10:00)
[2020-12-03] MEDS: DexAMETHasone SOD PHOS 10MG/1ML VIAL INJ IV SCH (10:00)
[2020-12-03] MEDS: METOPROLOL TARTRATE 25 MG TAB PO SCH ×2 (10:00→21:33)
[2020-12-03] MEDS: FLORASTOR (S. BOULARDII) 250 MG CAP PO SCH (10:00)
[2020-12-03 13:00] VITALS: BP 109/49
[2020-12-03 17:00] VITALS: BP 126/69
[2020-12-03] MEDS: MORPHINE SULF INJ 2 MG/ML SYRINGE 1ML IV PRN (20:53)
[2020-12-03] MEDS: ATORVASTATIN 20 MG TAB PO SCH (21:33)
[2020-12-03 22:00] VITALS: BP 130/57
[2020-12-04 05:00] VITALS: BP 116/48
[2020-12-04] MEDS: LEVOTHYROXINE SODIUM 25 MCG TAB PO SCH (06:10)
[2020-12-04] MEDS: SODIUM CHLOR 0.9% PF (SALINE LOCK) 10ML VIAL/SYR IV SCH ×3 (06:11→22:00)
[2020-12-04 06:21] LABS: Hematocrit 21.3 % (41.0-53.0); Hemoglobin 7.2 g/dL (13.5-17.5)
[2020-12-04 06:41] LABS: BUN/Creatinine Ratio 33.2; Calcium 8.4 mg/dL (8.5-10.1)
[2020-12-04] MEDS: ALBUTEROL SULF HFA 90MCG INH 200DOSE IN PRN ×2 (07:10→21:51)
[2020-12-04] MEDS: BUDESONIDE (INHALATION) 180 MCG IH IN SCH ×2 (07:10→21:51)
[2020-12-04 09:00] VITALS: BP 119/58
[2020-12-04] MEDS: cefTRIAXone 1GM/50ML D5W 50 ML IV SCH (09:00)
[2020-12-04] MEDS: METOPROLOL TARTRATE 25 MG TAB PO SCH ×2 (10:00→21:59)
[2020-12-04] MEDS: ENOXAPARIN SOD 30 MG/0.3 ML SYRINGE SC SCH ×2 (10:00→21:58)
[2020-12-04] MEDS: ASCORBIC ACID 1,000 MG TAB PO SCH (10:00)
[2020-12-04] MEDS: DexAMETHasone SOD PHOS 10MG/1ML VIAL INJ IV SCH (10:00)
[2020-12-04] MEDS: ASPirin-EC 81 mg tab PO SCH (10:00)
[2020-12-04] MEDS: PANTOPRAZOLE 40 MG TAB PO SCH (10:00)
[2020-12-04] MEDS: FLORASTOR (S. BOULARDII) 250 MG CAP PO SCH (10:00)
[2020-12-04] MEDS: LISINOPRIL 10 MG TAB PO SCH (10:00)
[2020-12-04] MEDS: ZINC SULFATE 220mg CAP or TAB PO SCH (10:00)
[2020-12-04] MEDS: CHOLECALCIFEROL (VITD3) 2,000 UNIT CAP/TAB PO SCH (10:00)
[2020-12-04] MEDS: FUROSEMIDE 20 MG/2 ML VIAL IV SCH (10:00)
[2020-12-04 13:00] VITALS: BP 120/55
[2020-12-04 17:00] VITALS: BP 134/59
[2020-12-04] MEDS: ATORVASTATIN 20 MG TAB PO SCH (21:58)
[2020-12-04 22:00] VITALS: BP 120/55
[2020-12-05 00:56] VITALS: BP 128/59
[2020-12-05 05:00] VITALS: BP 134/53
[2020-12-05] MEDS: SODIUM CHLOR 0.9% PF (SALINE LOCK) 10ML VIAL/SYR IV SCH ×3 (06:13→20:52)
[2020-12-05] MEDS: LEVOTHYROXINE SODIUM 25 MCG TAB PO SCH (06:14)
[2020-12-05] MEDS: BUDESONIDE (INHALATION) 180 MCG IH IN SCH ×2 (06:32→19:36)
[2020-12-05] MEDS: ALBUTEROL SULF HFA 90MCG INH 200DOSE IN PRN ×2 (06:32→19:36)
[2020-12-05 06:33] LABS: Potassium 3.8 mmol/L (3.5-5.1)
[2020-12-05 06:38] LABS: BUN/Creatinine Ratio 32.8; Calcium 8.4 mg/dL (8.5-10.1)
[2020-12-05 08:00] VITALS: BP 128/59
[2020-12-05] MEDS: cefTRIAXone 1GM/50ML D5W 50 ML IV SCH (10:12)
[2020-12-05] MEDS: ASPirin-EC 81 mg tab PO SCH (10:13)
[2020-12-05] MEDS: DexAMETHasone SOD PHOS 10MG/1ML VIAL INJ IV SCH (10:13)
[2020-12-05] MEDS: ZINC SULFATE 220mg CAP or TAB PO SCH (10:13)
[2020-12-05] MEDS: FLORASTOR (S. BOULARDII) 250 MG CAP PO SCH (10:13)
[2020-12-05] MEDS: FUROSEMIDE 20 MG/2 ML VIAL IV SCH (10:13)
[2020-12-05] MEDS: CHOLECALCIFEROL (VITD3) 2,000 UNIT CAP/TAB PO SCH (10:14)
[2020-12-05] MEDS: METOPROLOL TARTRATE 25 MG TAB PO SCH ×2 (10:14→20:53)
[2020-12-05] MEDS: ASCORBIC ACID 1,000 MG TAB PO SCH (10:14)
[2020-12-05] MEDS: PANTOPRAZOLE 40 MG TAB PO SCH (10:14)
[2020-12-05] MEDS: LISINOPRIL 10 MG TAB PO SCH (10:14)
[2020-12-05] MEDS: ENOXAPARIN SOD 30 MG/0.3 ML SYRINGE SC SCH ×2 (10:15→20:52)
[2020-12-05 13:00] VITALS: BP 128/45
[2020-12-05 17:00] VITALS: BP 129/69
[2020-12-05] MEDS: ATORVASTATIN 20 MG TAB PO SCH (20:52)
[2020-12-05 22:00] VITALS: BP 119/62
[2020-12-06 05:00] VITALS: BP 136/56
[2020-12-06 05:49] LABS: Hematocrit 22.3 % (41.0-53.0); Hemoglobin 7.8 g/dL (13.5-17.5)
[2020-12-06] MEDS: SODIUM CHLOR 0.9% PF (SALINE LOCK) 10ML VIAL/SYR IV SCH ×3 (05:53→21:50)
[2020-12-06 06:05] LABS: BUN/Creatinine Ratio 32.8; Calcium 8.9 mg/dL (8.5-10.1); Potassium 3.8 mmol/L (3.5-5.1)
[2020-12-06] MEDS: LEVOTHYROXINE SODIUM 25 MCG TAB PO SCH (06:21)
[2020-12-06] MEDS: ALBUTEROL SULF HFA 90MCG INH 200DOSE IN PRN ×2 (08:43→18:25)
[2020-12-06] MEDS: BUDESONIDE (INHALATION) 180 MCG IH IN SCH ×2 (08:44→18:25)
[2020-12-06] MEDS: cefTRIAXone 1GM/50ML D5W 50 ML IV SCH (09:30)
[2020-12-06] MEDS: DexAMETHasone SOD PHOS 10MG/1ML VIAL INJ IV SCH (11:05)
[2020-12-06] MEDS: ZINC SULFATE 220mg CAP or TAB PO SCH (11:09)
[2020-12-06] MEDS: FUROSEMIDE 20 MG/2 ML VIAL IV SCH (11:09)
[2020-12-06] MEDS: ASPirin-EC 81 mg tab PO SCH (11:10)
[2020-12-06] MEDS: FLORASTOR (S. BOULARDII) 250 MG CAP PO SCH (11:11)
[2020-12-06] MEDS: PANTOPRAZOLE 40 MG TAB PO SCH (11:12)
[2020-12-06] MEDS: METOPROLOL TARTRATE 25 MG TAB PO SCH ×2 (11:12→21:51)
[2020-12-06] MEDS: ASCORBIC ACID 1,000 MG TAB PO SCH (11:13)
[2020-12-06] MEDS: CHOLECALCIFEROL (VITD3) 2,000 UNIT CAP/TAB PO SCH (11:14)
[2020-12-06] MEDS: LISINOPRIL 10 MG TAB PO SCH (11:15)
[2020-12-06] MEDS: ENOXAPARIN SOD 30 MG/0.3 ML SYRINGE SC SCH ×2 (11:16→21:51)
[2020-12-06] MEDS: D5W 5% 1,000 ML IV SCH (16:59)
[2020-12-06 17:28] LABS: Sodium Urine 60 mmol/L (40-220)
[2020-12-06 17:30] LABS: Creatinine, Urine 59 mg/dL (30.0-125.0); Protein, Urine 33.8 mg/dL (0.0-11.9)
[2020-12-06 17:40] VITALS: BP 164/59
[2020-12-06] MEDS: ATORVASTATIN 20 MG TAB PO SCH (21:50)
[2020-12-06] MEDS: DOXYCYCLINE 100 MG TAB/CAP PO SCH (21:51)
[2020-12-07] VITALS: BP 141/61
[2020-12-07] MEDS: D5W 5% 1,000 ML IV SCH ×3 (00:45→22:05)
[2020-12-07 04:55] VITALS: BP 134/60
[2020-12-07] MEDS: SODIUM CHLOR 0.9% PF (SALINE LOCK) 10ML VIAL/SYR IV SCH (05:20)
[2020-12-07] MEDS: BUDESONIDE (INHALATION) 180 MCG IH IN SCH ×2 (06:22→20:42)
[2020-12-07 06:27] LABS: Potassium 3.8 mmol/L (3.5-5.1)
[2020-12-07 06:36] LABS: Albumin 1.9 g/dL (3.4-5.0); BUN/Creatinine Ratio 29.8; Bilirubin, Total 0.7 mg/dL (0.2-1.0); Calcium 8.1 mg/dL (8.5-10.1); Phosphorus 2.4 mg/dL (2.5-4.90); Total Protein 5.7 g/dL (6.4-8.2)
[2020-12-07] MEDS: LEVOTHYROXINE SODIUM 25 MCG TAB PO SCH (06:45)
[2020-12-07 09:00] VITALS: BP 125/53
[2020-12-07] MEDS: METOPROLOL TARTRATE 25 MG TAB PO SCH ×2 (10:00→22:00)
[2020-12-07] MEDS: CHOLECALCIFEROL (VITD3) 2,000 UNIT CAP/TAB PO SCH (10:06)
[2020-12-07] MEDS: ZINC SULFATE 220mg CAP or TAB PO SCH (10:06)
[2020-12-07] MEDS: FLORASTOR (S. BOULARDII) 250 MG CAP PO SCH (10:06)
[2020-12-07] MEDS: DexAMETHasone SOD PHOS 10MG/1ML VIAL INJ IV SCH (10:07)
[2020-12-07] MEDS: PANTOPRAZOLE 40 MG TAB PO SCH (10:07)
[2020-12-07] MEDS: ASCORBIC ACID 1,000 MG TAB PO SCH (10:07)
[2020-12-07] MEDS: ASPirin-EC 81 mg tab PO SCH (10:07)
[2020-12-07] MEDS: DOXYCYCLINE 100 MG TAB/CAP PO SCH ×2 (10:07→22:04)
[2020-12-07] MEDS: FUROSEMIDE 20 MG/2 ML VIAL IV SCH (10:10)
[2020-12-07] MEDS: ENOXAPARIN SOD 30 MG/0.3 ML SYRINGE SC SCH ×2 (10:15→22:04)
[2020-12-07 13:00] VITALS: BP 125/53
[2020-12-07 17:00] VITALS: BP 122/47
[2020-12-07 22:00] VITALS: BP 136/56
[2020-12-07] MEDS: ATORVASTATIN 20 MG TAB PO SCH (22:04)
[2020-12-08 05:00] VITALS: BP 120/50
[2020-12-08 05:51] LABS: Potassium 3.8 mmol/L (3.5-5.1)
[2020-12-08 05:59] LABS: Albumin 1.6 g/dL (3.4-5.0); BUN/Creatinine Ratio 30.4; Bilirubin, Total 0.6 mg/dL (0.2-1.0); Calcium 7.9 mg/dL (8.5-10.1); Total Protein 5.3 g/dL (6.4-8.2)
[2020-12-08] MEDS: BUDESONIDE (INHALATION) 180 MCG IH IN SCH ×2 (06:15→20:56)
[2020-12-08] MEDS: D5W 5% 1,000 ML IV SCH (06:42)
[2020-12-08] MEDS: LEVOTHYROXINE SODIUM 25 MCG TAB PO SCH (06:42)
[2020-12-08 09:00] VITALS: BP 127/52
[2020-12-08 09:51] LABS: Hemoglobin 7.5 g/dL (13.5-17.5)
[2020-12-08 09:56] LABS: Hematocrit 22.5 % (41.0-53.0)
[2020-12-08] MEDS: DexAMETHasone SOD PHOS 10MG/1ML VIAL INJ IV SCH (10:29)
[2020-12-08] MEDS: FUROSEMIDE 20 MG/2 ML VIAL IV SCH (10:30)
[2020-12-08] MEDS: ZINC SULFATE 220mg CAP or TAB PO SCH (10:31)
[2020-12-08] MEDS: ASPirin-EC 81 mg tab PO SCH (10:31)
[2020-12-08] MEDS: METOPROLOL TARTRATE 25 MG TAB PO SCH ×2 (10:33→21:41)
[2020-12-08] MEDS: PANTOPRAZOLE 40 MG TAB PO SCH (10:33)
[2020-12-08] MEDS: ASCORBIC ACID 1,000 MG TAB PO SCH (10:34)
[2020-12-08] MEDS: CHOLECALCIFEROL (VITD3) 2,000 UNIT CAP/TAB PO SCH (10:34)
[2020-12-08] MEDS: DOXYCYCLINE 100 MG TAB/CAP PO SCH ×2 (10:34→21:41)
[2020-12-08] MEDS: ENOXAPARIN SOD 30 MG/0.3 ML SYRINGE SC SCH ×2 (10:34→21:41)
[2020-12-08] MEDS ORDERED: DOXY-286 PO (11:43)
[2020-12-08] MEDS ORDERED: ZINC220T6 PO (11:43)
[2020-12-08] MEDS ORDERED: LEVO75TA6 PO (11:43)
[2020-12-08] MEDS ORDERED: FURO1TAB33 PO (11:43)
[2020-12-08] MEDS ORDERED: D5W 5% 1,000 ML IV SCH (11:45)
[2020-12-08] MEDS ORDERED: D5W 5% 1,000 ML IV ONE (11:45)
[2020-12-08] MEDS ORDERED: MET25T PO (11:47)
[2020-12-08] MEDS ORDERED: ASCO10003 PO (11:47)
[2020-12-08] MEDS ORDERED: CHOL1CAP47 PO (11:47)
[2020-12-08] MEDS ORDERED: ASPI-543 PO (11:47)
[2020-12-08] MEDS ORDERED: DEX4T PO (11:47)
[2020-12-08] MEDS ORDERED: PANT40TA2 PO (11:47)
[2020-12-08] MEDS ORDERED: BUDE2SUS3 IN (11:47)
[2020-12-08] MEDS ORDERED: ALBUAER3 IN (11:47)
[2020-12-08] MEDS ORDERED: LISI2.5T47 PO (11:53)
[2020-12-08 13:00] VITALS: BP 130/51
[2020-12-08] MEDS: FLORASTOR (S. BOULARDII) 250 MG CAP PO SCH (13:38)
[2020-12-08] MEDS: ATORVASTATIN 20 MG TAB PO SCH (21:40)
[2020-12-08 21:56] VITALS: BP 122/52
[2020-12-09 05:20] VITALS: BP 121/46
[2020-12-09] MEDS: LEVOTHYROXINE SODIUM 25 MCG TAB PO SCH (06:28)
[2020-12-09 06:59] LABS: Albumin 1.7 g/dL (3.4-5.0); BUN/Creatinine Ratio 30.2; Bilirubin, Total 0.6 mg/dL (0.2-1.0); Calcium 8.5 mg/dL (8.5-10.1); Total Protein 5.1 g/dL (6.4-8.2)
[2020-12-09] MEDS: BUDESONIDE (INHALATION) 180 MCG IH IN SCH ×2 (07:41→22:00)
[2020-12-09] MEDS: ALBUTEROL SULF HFA 90MCG INH 200DOSE IN PRN (07:41)
[2020-12-09 09:16] VITALS: BP 115/56
[2020-12-09] MEDS: ASPirin-EC 81 mg tab PO SCH (09:47)
[2020-12-09] MEDS: CHOLECALCIFEROL (VITD3) 2,000 UNIT CAP/TAB PO SCH (09:48)
[2020-12-09] MEDS: PANTOPRAZOLE 40 MG TAB PO SCH (09:48)
[2020-12-09] MEDS: ASCORBIC ACID 1,000 MG TAB PO SCH (09:48)
[2020-12-09] MEDS: DOXYCYCLINE 100 MG TAB/CAP PO SCH (09:48)
[2020-12-09] MEDS: ZINC SULFATE 220mg CAP or TAB PO SCH (09:48)
[2020-12-09] MEDS: FLORASTOR (S. BOULARDII) 250 MG CAP PO SCH (09:49)
[2020-12-09] MEDS: DexAMETHasone SOD PHOS 10MG/1ML VIAL INJ IV SCH (09:49)
[2020-12-09] MEDS: METOPROLOL TARTRATE 25 MG TAB PO SCH (09:49)
[2020-12-09] MEDS: ENOXAPARIN SOD 30 MG/0.3 ML SYRINGE SC SCH (09:50)
[2020-12-09] MEDS ORDERED: FUROSEMIDE 20 MG/2 ML VIAL IV SCH (10:00)
[2020-12-09 14:13] VITALS: BP 126/50
[2020-12-09] MEDS ORDERED: D5W 5% 1,000 ML IV ONE (15:15)
[2020-12-09 16:21] VITALS: BP 115/46
[2020-12-09 17:19] VITALS: BP 124/57
== END 2020-12-09 20:10 | DRG 466 ==
LOC: ER 09:56 → EDBD 09:56 → TELE 15:10 → TELE-WESTW 17:46 → TELE-EAST 12-09 17:45
PROVIDERS: ADMIT Nurse Practitioner Acute Care; ATTEND Internal Medicine Nephrology
PROC: XW033E5 Introduction of Remdesivir Anti-infective into Peripheral Vein, Percutaneous Approach, New Technology Group 5 (ICD-10-PCS; 2020-11-28)
PROC: XW13325 Transfusion of Convalescent Plasma (Nonautologous) into Peripheral Vein, Percutaneous Approach, New Technology Group 5 (ICD-10-PCS; 2020-11-29)
PROC: 0SP90JZ Removal of Synthetic Substitute from Right Hip Joint, Open Approach (ICD-10-PCS; 2020-12-01)
PROC: B41F1ZZ Fluoroscopy of Right Lower Extremity Arteries using Low Osmolar Contrast (ICD-10-PCS; 2020-12-01)
PROC: 0SR9069 Replacement of Right Hip Joint with Oxidized Zirconium on Polyethylene Synthetic Substitute, Cemented, Open Approach (ICD-10-PCS; principal; 2020-12-01 07:59)
DX: T84.020A Dislocation of internal right hip prosthesis, initial encounter (principal); U07.1 COVID-19; J12.82 Pneumonia due to coronavirus disease 2019; N17.0 Acute kidney failure with tubular necrosis; J96.01 Acute respiratory failure with hypoxia; I21.A1 Myocardial infarction type 2; I50.23 Acute on chronic systolic (congestive) heart failure; D68.59 Other primary thrombophilia; D62 Acute posthemorrhagic anemia; E87.0 Hyperosmolality and hypernatremia; I13.0 Hypertensive heart and chronic kidney disease with heart failure and stage 1 through stage 4 chronic kidney disease, or unspecified chronic kidney disease; I42.9 Cardiomyopathy, unspecified; J91.8 Pleural effusion in other conditions classified elsewhere; N18.31 Chronic kidney disease, stage 3a; D63.8 Anemia in other chronic diseases classified elsewhere; E03.9 Hypothyroidism, unspecified; E78.5 Hyperlipidemia, unspecified; E11.22 Type 2 diabetes mellitus with diabetic chronic kidney disease; Z53.8 Procedure and treatment not carried out for other reasons; I25.10 Atherosclerotic heart disease of native coronary artery without angina pectoris; Y79.2 Prosthetic and other implants, materials and accessory orthopedic devices associated with adverse incidents; E88.09 Other disorders of plasma-protein metabolism, not elsewhere classified; M81.0 Age-related osteoporosis without current pathological fracture; N40.0 Benign prostatic hyperplasia without lower urinary tract symptoms; Y92.89 Other specified places as the place of occurrence of the external cause
CPT/HCPCS: 36415; 51702; 71045; 72170; 72192; 73501; 76001; 76775; 80048; 80053; 80061; 81001; 82306; 82550; 82570; 82728; 83615; 83735; 83874; 83880; 83970; 84100; 84156; 84300; 84484; 85007; 85014; 85018; 85025; 85027; 85379; 85610; 85730; 86141; 86850; 86900; 86901; 87081; 87426; 93005; 93970; 94640; 96365; 96368; 96375; 97110; 97163; 97530; A4565; G0378; J0171; J0690; J0696; J1100; J1885; J2250; J2405; J3490; M0239